=== PATIENT | male | born 1950 | race Caucasian/White ===

== ENCOUNTER → 2018-01-20 | Outpatient (CLI) | payer MEDICARE | END | disposition home or self-care (01) | LOC: LABPAT 11:17 | PROVIDERS: ATTEND Urology | DX: Z01.818 Encounter for other preprocedural examination (principal); I10 Essential (primary) hypertension; N40.1 Benign prostatic hyperplasia with lower urinary tract symptoms | CPT/HCPCS: 93005 ==

== ENCOUNTER 2018-01-25 11:59 | Day surgery (SDC) | payer MEDICARE ==
[2018-01-21 11:54] VITALS: BMI 29.0
--- NOTE | 2018-01-25 09:18 | P.GSHP ---
History of Present Illness H&P Date: 01/25/18 Chief Complaint: Weak urinary stream The patient is a 67-year-old male with a history of superficial bladder cancer. He underwent resection in 1999 and has had no recurrences. He also has known BPH, and his voiding symptoms have worsened. The postvoid residual is 188 mL, compatible with incomplete bladder emptying. He was offered the options of observation, medical therapy, and TURP. He has elected to undergo the latter. Cystoscopy in 2008 revealed a high median bar. - Genitourinary (Female) Genitourinary: Reports dysuria, Reports hematuria - Genitourinary (Male) Genitourinary: Reports nocturia, Reports urinary frequency, Denies dysuria, Denies erectile dysfunction, Denies hematuria Past Medical History Past Medical History: Cancer, GERD/Reflux, Hyperlipidemia, Hypertension Additional Past Medical History / Comment(s): HX Bladder CA 1999 History of Any Multi-Drug Resistant Organisms: None Reported Past Surgical History: Adenoidectomy, Bladder Surgery, Cholecystectomy, Tonsillectomy Additional Past Surgical History / Comment(s): Colonoscopy Past Anesthesia/Blood Transfusion Reactions: No Reported Reaction Smoking Status: Former smoker - Past Family History Mother Family Medical History: Myocardial Infarction (MT) Medications and Allergies Home Medications Medication Instructions Recorded Confirmed Type Aspirin 325 mg PO DAILY 01/21/18 01/21/18 History Atenolol [Tenormin] 50 mg PO HS 01/21/18 01/21/18 History Atorvastatin [Lipitor] 10 mg PO HS 01/21/18 01/21/18 History Carboxymethylcellulose Sodium 15 ml OP DAILY PRN 01/21/18 01/21/18 History [Refresh Tears] Cetirizine HCl [Zyrtec ODT] 10 mg PO DAILY PRN 01/21/18 01/21/18 History Cyanocobalamin (Vitamin B-12) 5,000 mcg PO DAILY 01/21/18 01/21/18 History [Vitamin B12] Multivitamin [Men's Multi-Vitamin] 1 each PO DAILY 01/21/18 01/21/18 History [place]-3 Fatty Acids [[place]-3] 1,000 mg PO DAILY 01/21/18 01/21/18 History Omeprazole Magnesium [PriLOSEC OTC] 20 mg PO DAILY PRN 01/21/18 01/21/18 History Psyllium Husk [Metamucil] 0.4 gm PO DAILY PRN 01/21/18 01/21/18 History Super Beta Prostate 1 tab PO DAILY 01/21/18 History Ubidecarenone [Co Q-10] 300 mg PO DAILY 01/21/18 01/21/18 History amLODIPine BESYLATE [Norvasc] 10 mg PO HS 01/21/18 01/21/18 History Allergies Allergy/AdvReac Type Severity Reaction Status Date / Time No Known Allergies Allergy Verified 01/21/18 11:42 Surgical - Exam - General well developed, well nourished, no distress - Respiratory normal expansion, normal respiratory effort, clear to auscultation - Cardiovascular Rhythm: regular Abnormal Heart Sounds: no systolic murmur, no diastolic murmur, no rub, no S3 Gallop, no S4 Gallop, no click, no other - Abdomen Abdomen: soft, non tender, no guarding, no rigid, no rebound Hernia: none - Genitourinary normal penis with no external lesions, testicles non-tender - Rectum Prostate 30 grams, smooth. Rectum: normal sphincter tone, mass - Psychiatric oriented to time, oriented to person, oriented to place, speech is normal, memory intact Assessment and Plan (1) Enlarged prostate with lower urinary tract symptoms (LUTS) Status: Acute Code(s): N40.1 - BENIGN PROSTATIC HYPERPLASIA WITH LOWER URINARY TRACT SYMP SNOMED Code(s): 127097817 Plan: Cystoscopy, TURP: I discussed the options concerning surgery versus medication. I advised him with regard to TURP as opposed to minimally invasive procedures such as Urolift. Potential risks associated with TURP were discussed, including anesthesia, bleeding, infection, retrograde ejaculation, incontinence, erectile dysfunction, and vesical neck contracture. It is anticipated that he might be admitted post-operatively, likely for one night. The patient expressed an understanding with regard to possible complications and outcome.
[~2018-01-25 11:59] MED LIST: DEXAMETHASONE SOD PHOSPHATE 10 MG/ML 1 ML VIAL IV ONE; HYDROmorphone 0.5 MG/0.5 ML SYRINGE IVP PRN; LACTATED RINGERS 1,000 ML IV SCH; ONDANSETRON 4 MG/2 ML VIAL IVP ONE; ceFAZolin IN SWFI 2 GM/20 ML SYRINGE IVP ONE
[2018-01-25] MEDS ORDERED: LIDOCAINE 1% 20 ML VIAL (10MG/ML) FOR IV START INTRADERMA ONE (12:42)
[2018-01-25] MEDS ORDERED: MIDAZOLAM 2 MG/2 ML VIAL ONE (13:46)
[2018-01-25] MEDS ORDERED: LIDOCAINE 1% INJ 10MG/ML (20 ML MDV) ONE (13:46)
[2018-01-25] MEDS ORDERED: fentaNYL (PF) 50 MCG/ML 2 ML AMP ONE (13:46)
[2018-01-25] MEDS ORDERED: PROPOFOL 10 MG/ML 20 ML VIAL IV ONE (13:46)
[2018-01-25] MEDS ORDERED: ePHEDrine SULFATE/0.9% NACL/PF 50 MG/5 ML SYRINGE IV ONE (13:46)
[2018-01-25] MEDS ORDERED: SODIUM CHLORIDE 0.9% 100 ML with ceFAZolin 2,000 MG IV ONE ×2 (14:15)
--- NOTE | 2018-01-25 16:01 | P.OP ---
Date of Procedure: 01/25/18 Preoperative Diagnosis: BPH with Obstruction Postoperative Diagnosis: Same Procedure(s) Performed: Cystoscopy, Bipolar Transurethral Resection of the Prostate (TURP) Anesthesia: KAREN Surgeon: Clifton Astorga Estimated Blood Loss (ml): 75 IV fluids (ml): 700 Pathology: other (prostate chips) Condition: stable Disposition: PACU Indications for Procedure: The patient is a 67-year-old male with a history of superficial bladder cancer. He underwent resection in 1999 and has had no recurrences. He also has known BPH, and his voiding symptoms have worsened. The postvoid residual is 188 mL, compatible with incomplete bladder emptying. He was offered the options of observation, medical therapy, and TURP. He has elected to undergo the latter. Operative Findings: Trilobar BPH Description of Procedure: The patient was taken in the operating room and placed in the dorsolithotomy position. The external genitalia was prepped and draped sterilely. The 25- [place] [employer] resectoscope sheath was introduced into the bladder. The bladder was inspected. Both ureteral orifices were of normal anatomic location and configuration, and clear urine effluxed from both. No tumors or foreign bodies were seen. Examination of the prostate revealed complete obstruction with a trilobar configuration. Using the bipolar cutting loop, the median lobe was resected. The lateral lobes were then resected down to the surgical capsule. Next, the floor of the prostate was resected, proximal to the verumontanum. Lastly, any remaining anterior tissue was resected. The remaining apical tissue was then carefully resected. The resection was carried down to the surgical capsule in all 4 quadrants. The prostatic fossa was then carefully examined, and any areas of bleeding were controlled with electrocautery. Excellent hemostasis was attained. The resectoscope was withdrawn into the bulbous urethra. The external urinary sphincter remained intact. The prostatic fossa was open. The [place] [employer] evacuator was used to remove all prostate chips from the bladder. These were saved and sent for pathologic examination. The resectoscope was removed, and a 20 [place] Lynch catheter was placed. The return was clear. The patient tolerated the procedure well was taken to the recovery room in stable condition.
[2018-01-25 16:16] VITALS: TEMP 97
[2018-01-25 17:32] VITALS: RESP 18
[2018-01-25 18:13] VITALS: BP 156/70; PULSE 73
== END 2018-01-25 18:23 | disposition home or self-care (01) ==
LOC: OR 11:59
PROVIDERS: ATTEND Urology
DX: N40.1 Benign prostatic hyperplasia with lower urinary tract symptoms (principal); N13.8 Other obstructive and reflux uropathy; R35.0 Frequency of micturition; R35.1 Nocturia; R39.12 Poor urinary stream; K21.9 Gastro-esophageal reflux disease without esophagitis; E78.5 Hyperlipidemia, unspecified; I10 Essential (primary) hypertension; Z85.51 Personal history of malignant neoplasm of bladder; Z90.6 Acquired absence of other parts of urinary tract; Z90.49 Acquired absence of other specified parts of digestive tract; Z79.82 Long term (current) use of aspirin; Z79.899 Other long term (current) drug therapy; Z87.891 Personal history of nicotine dependence
CPT/HCPCS: 52601; J2250; J1100; J2405; J2001; J3010; J0690; J2704; 88305